=== PATIENT | male | born 1975 | race Caucasian/White ===

== ENCOUNTER 2020-11-02 14:19 | Emergency (ER) | payer MEDICAID ==
[~2020-11-02] VITALS: Ht 177.8 cm; Wt 62.7 kg
[2020-11-02 14:27] VITALS: BP 130/73
== END 2020-11-02 14:54 | disposition home or self-care (01) ==
LOC: ED 14:50
DX: L02.413 Cutaneous abscess of right upper limb (principal); Z20.822 Contact with and (suspected) exposure to COVID-19; B34.9 Viral infection, unspecified; B35.3 Tinea pedis; Z59.0 Homelessness
CPT/HCPCS: 99283; U0003; U0005